=== PATIENT | female | born 1995 | race Two or more races ===

== ENCOUNTER 2018-08-15 11:04 | Emergency (ER) | payer SELFPAY ==
[~2018-08-15] VITALS: Wt 66.6 kg
[2018-08-15 11:06] VITALS: BP 113/62; PULSE 78; RESP 18
[2018-08-15] MEDS ORDERED: ACETAMINOPHEN 500 MG TAB PO STA (13:20)
[2018-08-15] MEDS ORDERED: TYL500 PO (14:16)
--- NOTE | 2018-08-15 14:34 | ERD ---
ER Documentation Chief Complaint Chief Complaint MOUTH SORES 11 WEEKS PREG SENT BY MD KRAUSE 23-year-old female was referred by OB for evaluation of lower abdominal pain. She is approximate 11 weeks by dates. She denies any vaginal bleeding, fevers, vomiting, urinary complaints. She also has a sore on her lower lip for last few days. She has no additional skin lesions. Denies any vaginal lesions. ROS All systems reviewed and are negative except as per history of present illness. Medications Home Meds Active Scripts Acetaminophen* (Tylenol*) 500 Mg Tab, 500 MG PO Q4H PRN for MILD PAIN LEVEL 1-3, #20 TAB Prov:ANGLE ENNIS MD 08/15/18 Allergies Allergies: Coded Allergies: No Known Allergy (Unverified , 08/15/18) PMhx/Soc Medical and Surgical Hx: pt denies Medical Hx, pt denies Surgical Hx Hx Alcohol Use: No Hx Substance Use: No Hx Tobacco Use: No Smoking Status: Never smoker FmHx Family History: No diabetes, No coronary disease, No other Physical Exam Vitals Vital Signs Date Temp Pulse Resp B/P (MAP) Pulse Ox O2 O2 Flow FiO2 Time Delivery Rate 08/15/18 98.0 78 18 113/62 99 11:06 (79) Physical Exam Const: No acute distress Head: Atraumatic Eyes: Normal Conjunctiva ENT: Normal External Ears, Nose and Mouth. Lower left outer vesicular lesion without induration, streaking, redness. Airway patent. Neck: Full range of motion. No meningismus. Resp: Clear to auscultation bilaterally Cardio: Regular rate and rhythm, no murmurs Abd: Soft, minimal lower abdominal tenderness. No focal tenderness at McBurney's point. No Rios sign. No rebound., non distended. Normal bowel sounds Skin: No petechiae or rashes Back: No midline or flank tenderness Ext: No cyanosis, or edema Neur: Awake and alert Psych: Normal Mood and Affect Results 24 hrs Laboratory Tests Test 08/15/18 14:25 Bedside Urine pH (LAB) 7.0 Bedside Urine Protein (LAB) Negative Bedside Urine Glucose (UA) Negative Bedside Urine Ketones (LAB) Negative Bedside Urine Blood Negative Bedside Urine Nitrite (LAB) Negative Bedside Urine Leukocyte Esterase (L Negative Current Medications Medications Dose Sig/Yg Start Time Status Last (Trade) Ordered Route PRN Stop Time Admin Dose Reason Admin 500 mg ONCE STAT 08/15/18 DC 08/15/18 Acetaminophen PO 13:20 13:27 (Tylenol 08/15/18 13:21 Tab) Procedures/MDM Pelvic ultrasound shows normal appearing 11-week without appreciable acute abnormalities. There is a small subchorionic hemorrhage. Urine is negative. Patient presents with lower abdominal pain intermittent without signs of torsion, acute complications of . She has no signs of UTI and current signs or symptoms do not suggest appendicitis. She will discharged home with Tylenol, primary care follow-up and return precautions. The patient was stable with no new complaints during the ER course. Clinically, there is no current evidence to suggest meningitis, sepsis, acute abdomen, pneumonia, stroke, acute coronary syndrome, pulmonary embolism, aortic dissection or any other emergent condition appearing to require further evaluation or hospitalization. Patient counseled regarding my diagnostic impression and care plan. Prior to discharge all questions answered. Pt agrees with treatment plan and understands strict return precautions. Pt is instructed to follow up with primary care provider within 24-48 hours. Precautionary instructions provided including instructions to return to the ER if not improving or for any worsening or changing symptoms or concerns. Departure Diagnosis: Primary Impression: Abdominal pain Abdominal location: right lower quadrant Qualified Codes: R10.31 - Right lower quadrant pain Additional Impression: Sore in mouth Condition: Stable Patient Instructions: Abdominal Pain, Early , Herpes Labialis, Hsv: Type I Additional Instructions: No significant abnormalities on ultrasound. Lip lesion viral and should resolve in next week. Recheck for bleeding, fevers, new worsening symptoms. ANGLE ENNIS MD Aug 15, 2018 14:34
== END 2018-08-15 14:45 | disposition home or self-care (01) ==
LOC: FTE 11:04
DX: O26.891 Other specified pregnancy related conditions, first trimester (principal); K13.79 Other lesions of oral mucosa; R10.31 Right lower quadrant pain; Z3A.11 11 weeks gestation of pregnancy
CPT/HCPCS: 76801; 81003

== ENCOUNTER 2019-02-25 12:13 | Inpatient (IN) | payer OTHER ==
[~2019-02-25] VITALS: Ht 160 cm; Wt 87.5 kg
[~2019-02-25 12:13] MED LIST: TYL500 PO
[2019-02-25] MEDS ORDERED: PREN-93 PO (12:35)
[2019-02-25] MEDS ORDERED: LEVO25TA6 PO (12:35)
[2019-02-25 12:37] VITALS: BP 115/60; PULSE 75; RESP 18; Ht 160 cm; Wt 87.5 kg
--- NOTE | 2019-02-25 15:04 | TRIAGE ---
OB Triage Datetime Report Generated by CPN: 02/25/2019 15:04 Datetime: 02/25/2019 15:00 Stage of : OB Triage Datetime: 02/25/2019 12:51 Vaginal Exam Dilatation (cms): 0.0 Cervix, Consistency: Soft Cervix, Position: Posterior Datetime: 02/25/2019 12:32 Assessment Type: Triage Maternal Assessment Level of Consciousness: Keenly Alert, Responsive DTR's/Clonus: DTRs 2+; No Clonus Headache: Denies Blurred Vision: No Respiratory Effort: Unlabored; Regular Rhythm; Equal Expansion Breath Sounds, Left: Clear and Equal Breath Sounds, Right: Clear and Equal Nausea/Vomiting: Denies RUQ Epigastric Pain: Denies Lower Extremities Edema: None Degree: None Upper Extremities Edema: None Degree: None Facial Edema: None Fall Risk Assessment History of Falling: (0) No Secondary Diagnosis: (0) No Ambulatory Aid: (0) Bedrest/Nurse Assist IV Therapy: (0) No Gait: (0) Normal/Bedrest/Immobile Mental Status: (0) Oriented to Own Ability Fall Score: 0 Fall Risk Score Definition: No Risk: No action required Datetime: 02/25/2019 12:29 Labor Evaluation Monitor Mode: External Heart Rate Monitor Mode: External US Datetime: 02/25/2019 12:18 Time of Arrival: 02/25/2019 12:02 EGA: 39.0 Arrived By: Ambulatory Arrived From: Home Chief Complaint: PT. HERE C/O UC'S SINCE 0600 Movement: Present Contractions: Irregular Rupture of Membranes: Denies Vaginal Bleeding: None Vaginal Discharge: Denies Recent Sexual Intercouse: Denies Abdominal Trauma: Not Applicable Patient Complaints: Contractions; Cramping; Back Pain Time Provider Notified: 02/25/2019 12:56 Provider Notified: JACKY BAL Initial Plan: NST/SVE/AMB/BPP
[2019-02-25] MEDS ORDERED: METHYLERGONOVINE 0.2 MG INJ IM PRN (16:30)
[2019-02-25] MEDS ORDERED: LIDOCAINE 1% (MPF) 30 ML INJ INJ PRN (16:30)
[2019-02-25] MEDS ORDERED: BUTORPHANOL 2 MG INJ IV PRN (16:30)
[2019-02-25] MEDS ORDERED: MISOPROSTOL 200 MCG TAB PR PRN (16:30)
[2019-02-25] MEDS ORDERED: CARBOPROST 250 MCG INJ IM PRN (16:30)
[2019-02-25] MEDS ORDERED: OXYTOCIN 30 UNITS/LR 500 ML IV PRN (16:30)
[2019-02-25] MEDS: MISOPROSTOL 50 MCG CAPSULE PO SCH ×2 (17:05→21:41)
[2019-02-25] MEDS: LACTATED RINGER'S 1,000 ML IV SCH ×2 (17:06→23:25)
--- NOTE | 2019-02-25 22:28 | HP ---
Date/Time of Note Date/Time of Note DATE: 02/25/19 TIME: 22:17 OB - History Hx of Present Free Text/Dictation 23 y.o presented triage with c/o UC's since 0600 0n 02/25/19 EFM showes uc's 3-5min apart. VE closed /long BPP / PATRICIA only 5.2 EFW 3124gm 25.6% admitted for augmentation of labor for oligohydramnios. add : known to have hypothyroidism , on levothyroxine 12.5mcg Chief Complaint: uc's Estimated Due Date: Mar 05, 2019 : 1 Para: 0 Spontaneous : 0 Therapeutic : 0 Care: Other Ultrasounds: Normal mid trimester US, Other Obstetrical Complications: None Medical Complications: None Past Family/Social History * Past Medical, Surgical, Family and Obstetric Histories reviewed from chart. Blood Type: A+ Rubella: immune RPR/VDRL: Negative GBS Status: Negative HBsAG: Negative OB Admission Exam Vital Signs Vital Signs Vital Signs Date Temp Pulse Resp B/P (MAP) Pulse Ox O2 O2 Flow FiO2 Time Delivery Rate 02/25/19 97.0 75 18 115/60 Room Air 12:37 (78) Physical Exam HEENT: WNL Heart: Rhythm Normal Lungs: Clear, Equal Abdomen: WNL Extremities: Normal Reflexes: Normal Cervical Dilatation: None Effacement: 0% Station: -3 Membranes: Intact Amniotic Fluid: Unevaluable Heart Rate: 130's Accelerations: Accelerations Present Decelerations: No Decelerations Varibility: Moderate Contractions on Admission: < 5 Minutes Apart Intensity: Mild Last 72 hours Lab Results CBC & BMP 02/25/19 16:30 OB Assessment/Plan Reason for admission: other (oligohydramnios) Other Assessment: IUP 39w Plan: Induction Induction Method: per Misoprostol Protocol KATHI RICO MD Feb 25, 2019 22:28
[2019-02-26] MEDS ORDERED: FENTAnyl 2MCG/ML-ROPIV 0.2% 100 ML ONE (01:43)
--- NOTE | 2019-02-26 01:56 | PREAC ---
Date/Time of Note Date/Time of Note DATE: 02/26/19 TIME: 01:54 Anesthesia Eval and Record Evaluation Time Pre-Procedure Interview DATE: 02/26/19 TIME: 01:54 Age 23 Sex female NPO: 8 hrs Preoperative diagnosis Labor Pain Planned procedure Labor Epidural Past Medical History Past Medical History: Includes Endo: Hypothyroid : : (1), Para: (0), Gestational age: (39) Surgery & Anesthesia Issues No known issue Meds Anticoagulation: No Beta Tim within 24 hr: No Reason Beta Tim not given: Pt. not on B-Tim Reported Medications Vit No.124/Iron/FA ( Vitamin Tablet) 1 Each Tablet, 1 EACH PO DAILY, TAB 02/25/19 Levothyroxine Sodium* (Levothyroxine Sodium*) 25 Mcg Tablet, 12.5 MCG PO BEFORE BREAKFAST, #30 TAB 02/25/19 Discontinued Scripts Acetaminophen* (Tylenol*) 500 Mg Tab, 500 MG PO Q4H PRN for MILD PAIN LEVEL 1-3, #20 TAB Prov:ANGLE ENNIS MD 08/15/18 Current Medications Levothyroxine Sodium (Synthroid) 12.5 mcg BEFORE BREAKFAST PO ; Start 02/26/19 at 07:00 Lactated Ringer's 1,000 ml @ 125 mls/hr Q8H IV Last administered on 02/25/19at 23:25; Admin Dose 125 MLS/HR; Start 02/25/19 at 16:02 Butorphanol Tartrate (Stadol) 2 mg Q2H PRN IV .PAIN SCALE 6-10; Start 02/25/19 at 16:30 Lidocaine (Xylocaine 1% (Mpf)) 30 ml ONCE PRN INJ .EPISIOTOMY; Start 02/25/19 at 16:30 Oxytocin/Lactated Ringer's 500 ml @ 0 mls/hr ONCE PRN IV .VAGINAL BLEEDING; Start 02/25/19 at 16:30 Methylergonovine Maleate (Methergine) 0.2 mg ONCE PRN IM .VAGINAL BLEEDING; Start 02/25/19 at 16:30 Carboprost Tromethamine (Hemabate) 250 mcg ONCE PRN IM .VAGINAL BLEEDING; Start 02/25/19 at 16:30 Misoprostol (Cytotec) 1,000 mcg ONCE PRN NE .VAGINAL BLEEDING; Start 02/25/19 at 16:30 Misoprostol (Cytotec 50 Mcg Capsule) 50 mcg Q4 PO Last administered on 02/25/19at 21:41; Admin Dose 50 MCG; Start 02/25/19 at 17:00 Meds reviewed: Yes Allergies Coded Allergies: No Known Allergy (Unverified , 08/15/18) Allergies Reviewed: Yes Labs/Studies Labs Reviewed: Reviewed by anesthesiologist Result Diagram: 02/25/19 1630 Laboratory Tests 02/25/19 16:30 Blood Bank Test 02/25/19 16:30 Blood Type A POSITIVE Rh Immune Globulin Candidate NO test: Positive Studies: ECG (n/a), CXR (n/a) Pre-procedure Exam Last vitals Vital Signs Date Temp Pulse Resp B/P (MAP) Pulse Ox O2 O2 Flow FiO2 Time Delivery Rate 02/25/19 97.0 75 18 115/60 Room Air 12:37 (78) Airway: Adequate mouth opening, Adequate thyromental dist Mallampati: Mallampati II Teeth: Normal Lung: Normal Heart: Normal ASA Physical Status ASA physical status: 2 Emergency: None Planned Anesthetic Neuraxial: Epidural Planned Pain Management Epidural Pre-operative Attestations Prior to commencing anesthesia and surgery, the patient was re-evaluated, there was verification of: *The patient's identity *The results of appropriate recent lab work and preoperative vital signs *The above evaluation not changing prior to induction *Anesthetic plan, risk benefits, alternative and complications discussed with patient/family; questions answered; patient/family understands, accepts and wishes to proceed. OLAYINKA CARLISLE MD Feb 26, 2019 01:55
--- NOTE | 2019-02-26 01:57 | PAC ---
Date/Time of Note Date/Time of Note DATE: 02/26/19 TIME: 01:57 Post-Anesthesia Notes Post-Anesthesia Note Last documented vital signs Vital Signs Date Temp Pulse Resp B/P (MAP) Pulse Ox O2 O2 Flow FiO2 Time Delivery Rate 02/26/19 97.0 75 18 115/60 98 Room Air 01:57 (78) Activity: WNL Respiratory function: WNL Cardiovascular function: WNL Mental status: Baseline Pain reasonably controlled: Yes Hydration appropriate: Yes Nausea/Vomiting absent: Yes OLAYINKA CARLISLE MD Feb 26, 2019 01:57
[2019-02-26] MEDS ORDERED: NALOXONE (0.4 MG/ML) INJ IV PRN (02:00)
[2019-02-26] MEDS ORDERED: FENTAnyl 2MCG/ML-ROPIV 0.2% 100 ML BAG EPI SCH (02:00)
[2019-02-26] MEDS: MISOPROSTOL 50 MCG CAPSULE PO SCH (02:51)
[2019-02-26] MEDS: LACTATED RINGER'S 1,000 ML IV SCH (06:23)
[2019-02-26] MEDS ORDERED: LEVOTHYROXINE 25 MCG TAB PO SCH (07:00)
--- NOTE | 2019-02-26 08:54 | LDN ---
Date/Time of Note Date/Time of Note DATE: 02/26/19 TIME: 08:53 Delivery Summary Placenta Delivered: Spontaneously Episiotomy: No Perineal laceration: 1 Anesthesia type: Epidural Estimated blood loss: 300 Sponge & Needle done & correct: Yes All needle counts correct: Yes Any foreign bodies felt in the: No CAL BAL MD Feb 26, 2019 08:54
[2019-02-26] MEDS ORDERED: OXYTOCIN 30 UNITS/LR 500 ML IV SCH (10:35)
[2019-02-26] MEDS ORDERED: OXYTOCIN 30 UNITS/LR 500 ML IV PRN (11:00)
[2019-02-26] MEDS ORDERED: METHYLERGONOVINE 0.2 MG INJ IM PRN (11:00)
[2019-02-26] MEDS ORDERED: MISOPROSTOL 200 MCG TAB PR PRN (11:00)
[2019-02-26] MEDS ORDERED: HYDROCODONE/APAP (5/325) TAB PO PRN (11:00)
[2019-02-26] MEDS ORDERED: MAGNESIUM HYDROXIDE 30ML CUP PO PRN (11:00)
[2019-02-26] MEDS ORDERED: ZOLPIDEM 5 MG TAB PO PRN (11:00)
[2019-02-26] MEDS ORDERED: ACETAMINOPHEN 325 MG TAB PO PRN (11:00)
[2019-02-26] MEDS ORDERED: DIPHENHYDRAMINE 25 MG CAP PO PRN (11:00)
[2019-02-26] MEDS ORDERED: SENNA/DOCUSATE NA (8.6MG/50MG) TAB PO PRN (11:00)
[2019-02-26] MEDS ORDERED: CARBOPROST 250 MCG INJ IM PRN (11:00)
[2019-02-26] MEDS ORDERED: BENZOCAINE 20% 56 ML SPRAY TOP PRN (11:00)
[2019-02-26 11:05] VITALS: BP 97/46; PULSE 72; RESP 18
[2019-02-26] MEDS: LANOLIN HPA 1 PKT TOP PRN (14:33)
[2019-02-26] MEDS: WITCH HAZEL/GLYCERIN PAD PR PRN (14:33)
[2019-02-26 16:47] VITALS: BP 104/55; PULSE 89; RESP 18
[2019-02-26] MEDS: IBUPROFEN 800 MG TAB PO SCH (18:00)
[2019-02-26] MEDS: LACTATED RINGER'S 1,000 ML IV* SCH (18:35)
[2019-02-26 19:40] VITALS: BP 110/58; PULSE 78; RESP 18
[2019-02-27] VITALS: BP 112/59; PULSE 97; RESP 18
[2019-02-27] MEDS: IBUPROFEN 800 MG TAB PO SCH ×4 (00:15→22:54)
[2019-02-27] MEDS: LACTATED RINGER'S 1,000 ML IV* SCH (02:35)
[2019-02-27 04:35] VITALS: BP 100/52; PULSE 78; RESP 18
[2019-02-27 08:00] VITALS: BP 103/57; PULSE 84; RESP 18
[2019-02-27] MEDS: LANOLIN HPA 1 PKT TOP PRN (09:39)
--- NOTE | 2019-02-27 11:20 | DS ---
Date/Time of Note Date/Time of Note DATE: 02/27/19 TIME: 11:20 Discharge Summary Admission/Discharge Info Admit Date/Time Feb 25, 2019 at 14:58 Discharge Date/Time Discharge Diagnosis term Patient Condition: Stable Hospital Course unremarkable Home Meds Reported Medications Vit No.124/Iron/FA ( Vitamin Tablet) 1 Each Tablet, 1 EACH PO DAILY, TAB 02/25/19 Levothyroxine Sodium* (Levothyroxine Sodium*) 25 Mcg Tablet, 12.5 MCG PO BEFORE BREAKFAST, #30 TAB 02/25/19 Discontinued Scripts Acetaminophen* (Tylenol*) 500 Mg Tab, 500 MG PO Q4H PRN for MILD PAIN LEVEL 1-3, #20 TAB Prov:ANGLE ENNIS MD 08/15/18 Primary Care Provider Care Physician No Primary Pending Labs Laboratory Tests Test 02/27/19 06:18 White Blood Count 15.8 10^3/ul (4.8-10.8) Red Blood Count 3.89 10^6/ul (4.20-5.40) Hemoglobin 11.4 g/dl (12.0-16.0) Hematocrit 35.1 % (37.0-47.0) Mean Corpuscular Volume 90.2 fl (82.0-101.0) Mean Corpuscular Hemoglobin 29.3 pg (29.0-33.0) Mean Corpuscular Hemoglobin Concent 32.5 g/dl (32.0-37.0) Red Cell Distribution Width 13.4 % (11.5-14.5) Platelet Count 196 10^3/UL (140-415) Mean Platelet Volume 11.4 fl (7.4-10.4) Immature Granulocytes % 0.600 % (0.001-0.429) Neutrophils % 71.3 % (39.0-77.0) Lymphocytes % 17.4 % (15.0-51.0) Monocytes % 9.2 % (0.0-11.0) Eosinophils % 1.2 % (0.0-7.0) Basophils % 0.3 % (0.0-2.0) Nucleated Red Blood Cells % 0.0 /100WBC (0.0-0.0) Immature Granulocytes # 0.090 10^3/ul (0.0-0.031) Neutrophils # 11.3 10^3/ul (1.6-7.5) Lymphocytes # 2.8 10^3/ul (0.8-2.9) Monocytes # 1.5 10^3/ul (0.3-0.9) Eosinophils # 0.2 10^3/ul (0.0-0.5) Basophils # 0.0 10^3/ul (0.0-0.1) Nucleated Red Blood Cells # 0.0 10^3/ul (0.0-0.0) CAL BAL MD Feb 27, 2019 11:20
[2019-02-27 17:00] VITALS: BP 115/62; PULSE 94; RESP 18
[2019-02-27 21:00] VITALS: BP 107/58; PULSE 99; RESP 22
[2019-02-27] MEDS: WITCH HAZEL/GLYCERIN PAD PR PRN (21:40)
[2019-02-28 04:00] VITALS: BP 93/55; PULSE 97; RESP 20
[2019-02-28] MEDS ORDERED: LEVOTHYROXINE 25 MCG TAB PO SCH (06:00)
[2019-02-28] MEDS: IBUPROFEN 800 MG TAB PO SCH ×3 (06:00→11:03)
[2019-02-28] MEDS: LANOLIN HPA 1 PKT TOP PRN (07:58)
[2019-02-28 08:30] VITALS: BP 98/52; PULSE 94; RESP 18
[2019-02-28] MEDS ORDERED: MEASLES,MUMPS,RUBELLA VACCINE INJ SC* ONE (09:00)
[2019-02-28] MEDS ORDERED: VARICELLA VACCINE LIVE/PF 1,350 UNIT/0.5 ML ML SC* ONE (09:00)
[2019-02-28] MEDS ORDERED: DIPHTH/TET/ACEL PERTUSS (ADULT) 0.5 ML VIAL IM* ONE (09:00)
--- NOTE | 2019-03-01 17:28 | DELSUM ---
Delivery Summary A-C Datetime Report Generated by CPN: 03/01/2019 17:28 DELIVERY PERSONNEL Machine Printer: Doan, Bonny MATERNAL INFORMATION Delivery Anesthesia: Epidural Medications in Delivery: pitocin Delivery QBL (ml): 300 Placenta Cultured: No Maternal Complications: None LABOR SUMMARY EDC: 03/04/2019 00:00 No. Babies in Womb: 1 Attempted: No Labor Anesthesia: None LABOR INFORMATION Reason for Induction: Not Applicable Complete Dilatation: 02/26/2019 07:52 Cervical Ripening Agents: Cytotec @ 50MCG Group B Beta Strep: Negative Antibiotics # of Doses: 0 Steroids Given: None Reason Steroids Not Administered: Not Applicable MEMBRANES Membranes Rupture Method: Spontaneous Amniotic Fluid Color: Clear Amniotic Fluid Amount: Small Amniotic Fluid Odor: None STAGES OF LABOR Stage 2 hr: 0 Stage 2 min: 30 Stage 3 hr: 0 Stage 3 min: 4 VAGINAL DELIVERY Episiotomy: None Laceration Extension: First Degree Laceration Type: Perineal Laceration Repair: Yes Initial Vag Sponge Count: 10 Final Vag Sponge Count: 10 Initial Vag Sharps Count: 2 Final Vag Sharps Count: 2 Sponge Count Correct: Yes Sharps Count Correct: Yes BABY A INFORMATION Delivery Date/Time: 02/26/2019 08:22 Method of Delivery: Vaginal Born in Route : No : N/A Forceps: N/A Vacuum Extraction: N/A Shoulder Dystocia : N/A SHOULDER DYSTOCIA BABY A Delivery Date/Time: 02/26/2019 08:22 PRESENTATION/POSITION BABY A Presentation: Cephalic Cephalic Presentation: Vertex Vertex Position: Left Occipital Anterior Breech Presentation: N/A PLACENTA INFORMATION BABY A Placenta Delivery Time : 02/26/2019 08:26 Placenta Method of Delivery: Spontaneous Placenta Status: Delivered SCORES BABY A Heart Rate 1 min: >100 bpm Resp Effort 1 min: Good Cry Reflex Irritability 1 min: Cough/Sneeze/Pulls Away Muscle Tone 1 min: Active Motion Color 1 min: Body [place], Extremit Blue Resuscitation Effort 1 min: Tactile Stimulation SCORE 1 MIN: 9 Heart Rate 5 min: >100 bpm Resp Effort 5 min: Good Cry Reflex Irritability 5 min: Cough/Sneeze/Pulls Away Muscle Tone 5 min: Active Motion Color 5 min: Body [place], Extremit Blue Resuscitation Effort 5 min: Tactile Stimulation SCORE 5 MIN: 9 INFANT INFORMATION BABY A Gestational Age at Delivery: 39.1 Gestational Status: Full Term- 39- 40.6 Weeks Infant Outcome : Liveborn, with signs of life Condition : Stable Sex: Male IDENTIFICATION/MEDS BABY A ID Band Location: Right Leg; Right Arm Sensor Applied: Yes Sensor Location : Cord Clamp Vitamin K Given : Not Given Erythromycin Given: Not Given WEIGHT/LENGTH BABY A Birthweight (gm): 3195 Weight (lb): 7 Weight (oz): 1 Length (in): 19.00 Infant Length (cm): 48.26 CORD INFORMATION BABY A No. Cord Vessels: 3 Nuchal Cord : N/A Cord Blood Taken: Yes Suction: Mouth; Nose ASSESSMENT BABY A Complications: None Physical Findings at Delivery: Within Normal Limits Infant Respirations: Appears Normal Cashier Payments Received/ALS Called : No Care By: Babita cortez Transferred To: Remains with Mother
== END 2019-02-28 17:20 | disposition home or self-care (01) | DRG 807 ==
LOC: OBT 12:13 → L-D 12:14 → OBT 14:58 → L-D 14:58 → PP1 02-26 10:33
PROVIDERS: ADMIT Obstetrics & Gynecology; ATTEND Obstetrics & Gynecology
PROC: 10E0XZZ Delivery of Products of Conception, External Approach (ICD-10-PCS; principal; 2019-02-26)
PROC: 0HQ9XZZ Repair Perineum Skin, External Approach (ICD-10-PCS; 2019-02-26)
DX: O41.03X0 Oligohydramnios, third trimester, not applicable or unspecified (principal); Z37.0 Single live birth; O99.284 Endocrine, nutritional and metabolic diseases complicating childbirth; E03.9 Hypothyroidism, unspecified; O70.0 First degree perineal laceration during delivery; Z3A.39 39 weeks gestation of pregnancy
CPT/HCPCS: 62322; 76815; 76818; 85025; 85610; 85730; 86592; 86800; 86900; 86901; 90716; 99464; G0463; J2590; J3010; J7120

== ENCOUNTER 2019-03-05 22:15 | Emergency (ER) | payer OTHER ==
[~2019-03-05] VITALS: Ht 160 cm; Wt 81.8 kg
[~2019-03-05 22:15] MED LIST changes: +ACET-141 PO; +CEPH-443 PO; +LEVO25TA6 PO; +PREN-93 PO; -TYL500 PO
[2019-03-05 22:29] VITALS: Ht 160 cm; Wt 81.8 kg
--- NOTE | 2019-03-06 00:05 | ERD ---
ER Documentation Chief Complaint Chief Complaint 7 DAYS POST NORMAL DELIVERY C/O FEVER X FEW HOURS HPI 23-year-old female recently delivered a baby vaginally about 1 week ago presents for fever x2 hours. She states that she had a 102 temperature at home. She took Tylenol and states that she feels a little bit better. She admits to some chills. She is having some vaginal discharge from her recent vaginal delivery however states that the symptoms are not any worse than when it started. She also states that she has pelvic pain from the recent vaginal delivery however the pain has been improving. Denies chest pain or shortness of breath. Denies cough or runny nose. Denies ear pain. Denies abdominal pain, nausea, vomiting. No other modifying factors noted, no other treatments tried at home. ROS All systems reviewed and are negative except as per history of present illness. Medications Home Meds Active Scripts Cephalexin* (Keflex*) 500 Mg Capsule, 500 MG PO BID for uti for 5 Days, #10 CAP Prov:WALTER JENKINS 03/06/19 Acetaminophen* (Acetaminophen*) 500 MG Extra Strength Tablet, 500 MG PO Q4H PRN for PAIN AND OR ELEVATED TEMP, #30 TAB Prov:WALTER JENKINS 03/06/19 Reported Medications Vit No.124/Iron/FA ( Vitamin Tablet) 1 Each Tablet, 1 EACH PO DAILY, TAB 02/25/19 Levothyroxine Sodium* (Levothyroxine Sodium*) 25 Mcg Tablet, 12.5 MCG PO BEFORE BREAKFAST, #30 TAB 02/25/19 Allergies Allergies: Coded Allergies: No Known Allergy (Unverified , 08/15/18) PMhx/Soc Medical and Surgical Hx: pt denies Medical Hx, pt denies Surgical Hx Hx Alcohol Use: No Hx Substance Use: No Hx Tobacco Use: No Smoking Status: Never smoker FmHx Family History: No coronary disease Physical Exam Vitals Vital Signs Date Temp Pulse Resp B/P (MAP) Pulse Ox O2 O2 Flow FiO2 Time Delivery Rate 03/06/19 99.1 88 16 128/68 99 Room Air 00:37 (88) 03/05/19 100.2 91 18 132/79 98 22:29 (96) Physical Exam Const: No acute distress Head: Atraumatic Eyes: Normal Conjunctiva ENT: Normal External Ears, Nose and Mouth. Neck: Full range of motion. No meningismus. Resp: Clear to auscultation bilaterally Cardio: Regular rate and rhythm, no murmurs Abd: Soft, non tender, non distended. Normal bowel sounds Skin: No petechiae or rashes Back: No midline or flank tenderness Ext: No cyanosis, or edema Neur: Awake and alert Psych: Normal Mood and Affect Result Diagram: 03/05/19 2314 03/05/19 2314 Results 24 hrs Laboratory Tests Test 03/05/19 22:57 03/05/19 23:14 Bedside Urine pH (LAB) 8.5 Bedside Urine Protein (LAB) 2+ Bedside Urine Glucose (UA) Negative Bedside Urine Ketones (LAB) Negative Bedside Urine Blood 3+ Bedside Urine Nitrite (LAB) Negative Bedside Urine Leukocyte Esterase (L 2+ White Blood Count 13.3 10^3/ul Red Blood Count 3.98 10^6/ul Hemoglobin 11.6 g/dl Hematocrit 35.3 % Mean Corpuscular Volume 88.7 fl Mean Corpuscular Hemoglobin 29.1 pg Mean Corpuscular Hemoglobin Concent 32.9 g/dl Red Cell Distribution Width 12.7 % Platelet Count 334 10^3/UL Mean Platelet Volume 9.9 fl Immature Granulocytes % 0.500 % Neutrophils % 75.0 % Lymphocytes % 12.8 % Monocytes % 8.0 % Eosinophils % 3.2 % Basophils % 0.5 % Nucleated Red Blood Cells % 0.0 /100WBC Immature Granulocytes # 0.070 10^3/ul Neutrophils # 10.0 10^3/ul Lymphocytes # 1.7 10^3/ul Monocytes # 1.1 10^3/ul Eosinophils # 0.4 10^3/ul Basophils # 0.1 10^3/ul Nucleated Red Blood Cells # 0.0 10^3/ul Urine Color YELLOW Urine Clarity CLOUDY Urine pH 9.0 Urine Specific [place] 1.021 Urine Ketones NEGATIVE mg/dL Urine Nitrite NEGATIVE mg/dL Urine Bilirubin NEGATIVE mg/dL Urine Urobilinogen NEGATIVE mg/dL Urine Leukocyte Esterase 3+ Julissa/ul Urine Microscopic RBC 163 /HPF Urine Microscopic WBC > 182 /HPF Urine Squamous Epithelial Cells FEW /HPF Urine Bacteria FEW /HPF Urine Mucus FEW /HPF Urine Hemoglobin 2+ mg/dL Urine Glucose NEGATIVE mg/dL Urine Total Protein 1+ mg/dl Sodium Level 139 mmol/L Potassium Level 4.0 mmol/L Chloride Level 105 mmol/L Carbon Dioxide Level 24 mmol/L Anion Gap 10 Blood Urea Nitrogen 10 mg/dl Creatinine 0.71 mg/dl Est Glomerular Filtrat Rate mL/min > 60 mL/min Glucose Level 101 mg/dl Calcium Level 9.6 mg/dl Total Bilirubin 0.4 mg/dl Direct Bilirubin 0.00 mg/dl Indirect Bilirubin 0.4 mg/dl Aspartate Amino Transf (AST/SGOT) 28 IU/L Alanine Aminotransferase (ALT/SGPT) 23 IU/L Alkaline Phosphatase 108 IU/L Total Protein 7.0 g/dl Albumin 3.9 g/dl Globulin 3.10 g/dl Albumin/Globulin Ratio 1.25 Current Medications Medications Dose Sig/Yg Start Time Status Last (Trade) Ordered Route PRN Stop Time Admin Dose Reason Admin Ceftriaxone 500 mg ONCE ONCE 03/06/19 DC 03/06/19 Sodium IM 00:30 03/06/19 00:18 (Rocephin) 00:31 Procedures/MDM Medical Decision Making: Differential diagnosis includes but not limited to endometritis, UTI, pyelonephritis, sepsis, pneumonia Patient appeared well on physical exam. ED course: CBC: WBC 13.3, hemoglobin 11.6 CMP: no e/o severe acidosis, alkalosis, renal failure, diabetic ketoacidosis, liver disease UA was consistent with a urinary tract infection Given fever and a urinary tract infection, patient was given a shot of Rocephin in the ER. Prescription(s): Patient given prescription for supportive medication(s) as well as antibiotic for the urinary tract infection.. Patient advised to follow up with PCP in 1-2 days. Patient advised to return to ED for new or worsening symptoms. Patient stable on discharge from the ED. Disclaimer: Inadvertent spelling and grammatical errors are likely due to EHR/dictation software use and do not reflect on the overall quality of patient care. Also, please note that the electronic time recorded on this note does not necessarily reflect the actual time of the patient encounter. Departure Diagnosis: Primary Impression: UTI (urinary tract infection) Urinary tract infection type: site unspecified Hematuria presence: without hematuria Qualified Codes: N39.0 - Urinary tract infection, site not specified Condition: Fair Patient Instructions: Understanding Urinary Tract Infections (UTIs) Referrals: COMMUNITY CLINICS YOU HAVE RECEIVED A MEDICAL SCREENING EXAM AND THE RESULTS INDICATE THAT YOU DO NOT HAVE A CONDITION THAT REQUIRES URGENT TREATMENT IN THE EMERGENCY DEPARTMENT. FURTHER EVALUATION AND TREATMENT OF YOUR CONDITION CAN WAIT UNTIL YOU ARE SEEN IN YOUR DOCTORS OFFICE WITHIN THE NEXT 1-2 DAYS. IT IS YOUR RESPONSIBILITY TO MAKE AN APPOINTMENT FOR FOLOW-UP CARE. IF YOU HAVE A PRIMARY DOCTOR --you should call your primary doctor and schedule an appointment IF YOU DO NOT HAVE A PRIMARY DOCTOR YOU CAN CALL OUR PHYSICIAN REFERRAL HOTLINE AT IF YOU CAN NOT AFFORD TO SEE A PHYSICIAN YOU CAN CHOSE FROM THE FOLLOWING [facility] [address] [facility]. [facility] [address] [facility] [address] [facility] [facility] [address] [facility]. [facility] [address] [facility]. [facility]. [address] Additional Instructions: Call your primary care doctor TOMORROW for an appointment during the next 1-2 days.See the doctor sooner or return here if your condition worsens before your appointment time. WALTER JENKINS DO Mar 06, 2019 00:05
[2019-03-06] MEDS ORDERED: CEFTRIAXONE 500 MG INJ IM ONE (00:30)
[2019-03-06 00:37] VITALS: BP 128/68; PULSE 88; RESP 16
== END 2019-03-06 00:39 | disposition home or self-care (01) ==
LOC: FTE 22:15
DX: O86.20 Urinary tract infection following delivery, unspecified (principal); B96.89 Other specified bacterial agents as the cause of diseases classified elsewhere
CPT/HCPCS: 36415; 80053; 81001; 85025; 96372; J0696; Z7502; 81003

== ENCOUNTER 2019-03-30 09:27 | Emergency (ER) | payer OTHER ==
[~2019-03-30] VITALS: Ht 152.4 cm; Wt 90.0 kg
[~2019-03-30 09:27] MED LIST changes: +NITR-58 PO
[2019-03-30 09:28] VITALS: BP 119/62; PULSE 67; RESP 18; Ht 152.4 cm; Wt 90.0 kg
== END 2019-03-30 12:50 | disposition home or self-care (01) ==
LOC: FTE 09:27
DX: R30.0 Dysuria (principal)
CPT/HCPCS: 81001; 87086; 87220; 87591; Z7502; 99283